=== PATIENT | male | born 1985 | race African-American/Black ===

== ENCOUNTER 2020-03-24 02:22 | Emergency (ER) | payer SELFPAY ==
[2020-03-24 02:30] VITALS: BP 152/94; PULSE 104; RESP 12; TEMP 36.9; O2SAT 95
[2020-03-24 03:02] LABS: Basophils Absolute Auto 0.1 K/mm3 (0.0-0.1); Basophils Percent Auto 0.6 % (0.2-1.2); Eosinophils Absolute Auto 0.2 K/mm3 (0-0.3); Eosinophils Percent Auto 1.6 % (0-4.4); Hematocrit 48.7 % (42.0-52.0); Hemoglobin 17.2 g/dL (14.0-18.0); Immature Granulocyte Absolute 0.03 K/mm3 (0.00-0.031); Immature Granulocyte Percent A 0.3 % (0-0.5); Lymphocytes Percent Auto 20.8 % (18.3-44.2); Mean Corpuscular HGB Conc 35.3 g/dl (32-36); Mean Corpuscular Hemoglobin 28.6 pg (26-34); Mean Corpuscular Volume 80.9 fl (80-100); Mean Platelet Volume 9.1 fl (7.4-10.4); Monocytes Absolute Auto 0.9 K/mm3 (0.1-0.6); Neutrophils Percent Auto 68.7 % (45.5-73.1); Platelet Count Result 253 k/mm3 (150-375); Red Blood Count 6.02 M/mm3 (4.6-6.20); Red Cell Distribution Width 13.4 % (11.5-14.5); White Blood Count 11.6 K/mm3 (4.5-10.0)
[2020-03-24 03:23] LABS: Alanine Aminotransferase 61 U/L (4-50); Albumin Level 4.9 g/dL (3.5-5.1); Alkaline Phosphatase 112 U/L (38-126); Aspartate Amino Transferase 43 U/L (17-59); Bilirubin,Total 0.6 mg/dL (0.2-1.3); Blood Urea Nitrogen 8 mg/dL (9-20); Calcium 9.3 mg/dL (8.4-10.2); Carbon Dioxide 26 mmol/L (22-30); Chloride 90 mmol/L (98-107); Estimated Glomerular Filt Rate > 60; Glucose 97 mg/dL (75-110); Lipase 392 U/L (23-300); Potassium 3.1 mmol/L (3.4-5.0); Sodium 132 mmol/L (137-145)
[2020-03-24 03:24] LABS: Add Urine Microscopic? YES; Appearance Urine Clear (Clear); Bacteria Urine Trace /hpf; Bilirubin Urine Negative (Negative); Blood Urine 1+ (Negative); Color Urine Straw (Yellow); Glucose Urine UA Negative (Negative); Ketones Urine Trace mg/dL (Negative); Leukocyte Esterase Ur Negative LEU/UL (Negative); Mucus Urine Rare /lpf; Nitrate Urine Negative (Negative); Protein Urine Negative (Negative); RBC Urine 0-2 /hpf (0-2); Specific Grav Ur 1.008 (1.001-1.035); Squamous Epithelial Cell Urine Rare /hpf (Few); Urobilinogen Urine Negative mg/dL (<2.0); WBC Urine 0-3 /hpf
[2020-03-24] MEDS: SODIUM CHLORIDE 0.9% IV 1,000 ML 999 ML IV CONT (03:41)
[2020-03-24] MEDS: MORPHINE SULFATE 4 MG/ML INJ IV PUSH (03:41)
[2020-03-24] MEDS: ONDANSETRON INJ 4 MG/2 ML VIAL IV PUSH (03:42)
[2020-03-24] MEDS: BELLADONNA ALK/PHENOB ELIX 10 ML, MAG HYDROX/ALUMINUM HYD/SIMETH 30 ML, LIDOCAINE HCL 2... PO (03:49)
--- NOTE | 2020-03-24 04:01 | ED.GENADULT ---
HPI - General Adult General Chief complaint: Abdominal Pain Stated complaint: multiple complaints Time Seen by Provider: 03/24/20 02:51 History of Present Illness HPI narrative: Patient is a 34-year-old male who presents the ER with abdominal pain. Located in the epigastrium and upper parts of the stomach. Ongoing intermittently over the last week waxes and wanes in intensity. Worse with eating and drinking especially alcohol. If he drinks too much water he will vomit. No fevers or chills or sweats. No burning in the back of the throat or the chest. Has not had similar symptoms before. Related Data Allergies Allergy/AdvReac Type Severity Reaction Status Date / Time No Known Allergies Allergy Verified 03/24/20 02:33 Review of Systems Review of Systems: All systems reviewed & are unremarkable except as noted in HPI and below Constitutional: Constitutional: Denies chills, Denies fever(s) and Reports weakness Cardiovascular: Cardiovascular: Denies chest pain and Denies radiating jaw, neck or arm pain Respiratory: Respiratory: Denies cough, Denies dyspnea and Denies wheezing Gastrointestinal: Gastrointestinal: Reports abdominal pain, Reports nausea and Reports vomiting PMFSH Past Medical History Medical History (Updated 03/24/20 @ 04:23 by Domenico Carrillo MD) Asthma Surgical History Surgical History (Updated 03/24/20 @ 04:18 by Domenico Carrillo MD) No pertinent past surgical history Social History Social History (Updated 03/24/20 @ 04:19 by Domenico Carrillo MD) Smoking status: Current every day smoker Exam Narrative: Exam Narrative: GENERAL: Well-appearing, well-nourished, and in no acute distress. HEAD: Normocephalic, atraumatic. ENT: Mucous membranes moist. CHEST: Clear to auscultation. No respiratory distress. HEART: Regular rate and rhythm. Normal peripheral pulses. ABDOMEN: Soft, nontender, nondistended. EXTREMITIES: Normal range of motion. No edema. SKIN: Warm, dry, no rash. NEURO: Alert and oriented x3. Course Course Emergency Course: Patient feels improved with Zofran/morphine/GI cocktail. Informed of results. Discharge home. Vital Signs Vital signs: Vital Signs Temperature 98.5 F 03/24/20 02:30 Pulse Rate 104 H 03/24/20 02:30 Respiratory Rate 12 03/24/20 02:30 Blood Pressure 152/94 H 03/24/20 02:30 Pulse Oximetry 95 03/24/20 02:30 Temperature 98.5 F 03/24/20 02:30 Pulse Rate 104 H 03/24/20 02:30 Respiratory Rate 12 03/24/20 02:30 Blood Pressure 152/94 H 03/24/20 02:30 Pulse Oximetry 95 03/24/20 02:30 Medical Decision Making Vital Signs Vital Signs: Vital Signs Temperature 98.5 F 03/24/20 02:30 Pulse Rate 104 H 03/24/20 02:30 Respiratory Rate 12 03/24/20 02:30 Blood Pressure 152/94 H 03/24/20 02:30 Pulse Oximetry 95 03/24/20 02:30 Temperature 98.5 F 03/24/20 02:30 Pulse Rate 104 H 03/24/20 02:30 Respiratory Rate 12 03/24/20 02:30 Blood Pressure 152/94 H 03/24/20 02:30 Pulse Oximetry 95 03/24/20 02:30 Lab Data Result diagrams: 03/24/20 02:55 03/24/20 02:55 Labs: Lab Results 03/24/20 03/24/20 03/24/20 Range/Units 02:55 02:55 02:55 WBC 11.6 H (4.5-10.0) K/mm3 RBC 6.02 (4.6-6.20) M/mm3 Hgb 17.2 (14.0-18.0) g/dL Hct 48.7 (42.0-52.0) % MCV 80.9 (80-100) fl MCH 28.6 (26-34) pg MCHC 35.3 (32-36) g/dl RDW 13.4 (11.5-14.5) % Plt Count 253 (150-375) k/mm3 MPV 9.1 (7.4-10.4) fl Immature Gran % (Auto) 0.3 (0-0.5) % Neut % (Auto) 68.7 (45.5-73.1) % Lymph % (Auto) 20.8 (18.3-44.2) % Spink % (Auto) 8.0 (2.6-8.5) % Eos % (Auto) 1.6 (0-4.4) % Baso % (Auto) 0.6 (0.2-1.2) % Lymph # (Auto) 2.40 (0.9-3.2) K/mm3 Spink # (Auto) 0.9 H (0.1-0.6) K/mm3 Eos # (Auto) 0.2 (0-0.3) K/mm3 Baso # (Auto) 0.1 (0.0-0.1) K/mm3 Abs Immat Gran (auto) 0.03 (0.00-0.031) K/mm3 Absolute Neuts (a
[2020-03-24 04:16] VITALS: BP 134/85; PULSE 99; RESP 19; O2SAT 100
[2020-03-24 04:26] VITALS: BP 133/74; PULSE 90; RESP 18; TEMP 37.1; O2SAT 100
== END 2020-03-24 04:31 | disposition home or self-care (01) ==
PROVIDERS: Emergency Provider Emergency Medicine
DX: K29.70 Gastritis, unspecified, without bleeding (principal); J45.909 Unspecified asthma, uncomplicated; F17.200 Nicotine dependence, unspecified, uncomplicated
CPT/HCPCS: 36415; 80053; 81001; 83690; 85025; 96361; 96374; 96375; 99284; A9270; J2270; J2405; J7030

== ENCOUNTER 2024-10-05 14:36 | Emergency (ER) | payer SELFPAY ==
--- NOTE | ~2024-10-05 | XR_ITS ---
XR lumbar spine 2-3V DATE: 10/05/2024 15:02 INDICATION: Radiating right low back pain TECHNIQUE: AP, lateral, coned lateral lumbosacral views COMPARISON: None FINDINGS: Normal alignment of the lumbar vertebrae. No fracture or bone destruction. The lumbar pedic les are intact. Lumbosacral interspaces are well preserved. No spondylolisthesis. The sacroiliac joints are intact. IMPRESSION: No significant abnormality Reviewed, dictated and finalized at location A. [employer] SEC[employer] DIRECT[employer] IMPRESSION: No significant abnormality
[2024-10-05 14:38] VITALS: BP 151/98; PULSE 101; RESP 14; TEMP 36.5; O2SAT 100
--- NOTE | 2024-10-05 14:49 | ED_ITS ---
HPI - Extremity Injury (Lower) General Chief Complaint: Extremity Injury, Lower Stated Complaint: right thigh pain x 1 month Time Seen by Provider: 10/05/24 14:40 Source: patient Mode of arrival: ambulatory Limitations: no limitations History of Present Illness HPI Narrative: This is a 39 year old male that presents to the ER for right sided low back pain. Ongoing over the last month. No known injury or trauma. Reports the pain radiates into the right leg. Denies saddle anesthesia, bowel/bladder incontinence. Related Data Allergies Allergy/AdvReac Type Severity Reaction Status Date / Time No Known Allergies Allergy Verified 03/24/20 02:33 Review of Systems Review of Systems: CONSTITUTIONAL: Denies fever SKIN: Denies rash MUSCULOSKELETAL: Reports back pain, and myalgia. NEUROLOGIC: Denies numbness, or weakness. All systems reviewed & are unremarkable except as noted in HPI and below PMFSH Past Medical History Medical History (Updated 10/05/24 @ 15:28 by Isi Hawk PA-C) Asthma Surgical History Surgical History (Updated 03/24/20 @ 04:18 by Domenico Carrillo MD) No pertinent past surgical history Social History Social History (Updated 03/24/20 @ 04:19 by Domenico Carrillo MD) Smoking status: Current every day smoker Exam Narrative: GENERAL: Well-appearing, well-nourished, and in no acute distress. HEAD: Normocephalic, atraumatic. EYES: EOMI. CHEST: Clear to auscultation. No respiratory distress. No wheezes rales or rhonchi HEART: Regular rate and rhythm. No murmur heard. Normal peripheral pulses. BACK: No midline spinal tenderness EXTREMITIES: Normal range of motion. No edema. Strength equal in bilateral lower extremities (5/5). Normal DP pulses SKIN: Warm, dry, no rash. NEURO: No focal deficits. Alert and oriented x3. Normal gait PSYCH: Normal mood and affect Course Course Emergency Course: patient updated on workup and agrees with plan of care Vital Signs Vital signs: Vital Signs Temperature 97.7 F 10/05/24 14:38 Pulse Rate 101 H 10/05/24 14:38 Respiratory Rate 14 10/05/24 14:38 Blood Pressure 151/98 H 10/05/24 14:38 Pulse Oximetry 100 10/05/24 14:38 Oxygen Delivery Room Air 10/05/24 14:38 Temperature 97.7 F 10/05/24 14:38 Pulse Rate 101 H 10/05/24 14:38 Respiratory Rate 14 10/05/24 14:38 Blood Pressure 151/98 H 10/05/24 14:38 Pulse Oximetry 100 10/05/24 14:38 Oxygen Delivery Room Air 10/05/24 14:38 MDM - Extremity Injury (Lower) MDM Narrative Medical decision making narrative: patient presents to the emergency department for right-sided low back pain radiating into the leg, ongoing over the last month. He is neurologically intact. No recent injuries or trauma. Lumbar spine x-ray without acute findings. Patient updated on his workup and agrees with plan of care. He is to follow up with primary provider. He was given warnings to return to the ER Differential Diagnosis Differential diagnosis: Likely other (Sciatica, lumbar radiculopathy, muscle strain) Imaging Data Radiologist's impression: ITS Impressions Lumbar Spine X-Ray 10/05/24 15:23 IMPRESSION: No significant abnormality Critical Care Time Critical Care Time Critical Care Time: No Discharge Plan Discharge Clinical Impression: Sciatica Qualifiers: Laterality: right Qualified Code(s): M54.31 - Sciatica, right side Patient Disposition: Home, Self-Care Condition: Stable Instructions: Sciatica (ED) Additional Instructions: Return to the ER if you experience weakness, numbness, bowel/bladder incontinence, or any other symptoms that are concerning to you Rest, use ice/heat, take anti-inflammatories (Aleve, Ibuprofen, Naproxen, etc) or Tylenol as needed for pain as well as muscle relaxer (Flexeril) as needed for pain. Muscle relaxers can make you drowsy, do not drive if you take this Follow up with your primary care doctor Patient Language: Upper Sorbian Prescriptions: New cyclobenzaprine 10 mg tablet 10 mg PO TID PRN (Reason: muscle spasm) Qty: 14 0RF No Action famotidine [Pepcid] 20 mg tablet 20 mg PO BID Qty: 20 0RF Follow-up/Referrals: Landon Johnson MD [Physician] - PHYSICIAN,[employer] MANAGEMENT [employer]OCIATE [Primary Care Provider] -
[2024-10-05] MEDS: ACETAMINOPHEN 500 MG TABLET 1000 MG PO (15:07)
[2024-10-05] MEDS: KETOROLAC 30 MG/ML VIAL (*BKC) IM (15:08)
--- OUTSIDE RECORDS SUMMARY | 2024-10-12 22:43 | XMS_ITS | CONTINUITY OF CARE DOCUMENT ---
Author Name layla rich Address Unknown Organization [facility] Address [address] [place] [address] [address] [place] [address] Phone [phone] Care Team Providers Care Manager Technical Support Name Role Phone Dave Thurman MD Unavailable Dave Thurman MD Unavailable [phone] INSURANCE PROVIDERS Payer name Policy type / Coverage type [place] red green party ID [facility] [id number]
== END 2024-10-05 15:40 | disposition home or self-care (01) ==
PROVIDERS: Emergency Provider Physician Assistant
DX: M54.41 Lumbago with sciatica, right side (principal); J45.909 Unspecified asthma, uncomplicated; F17.200 Nicotine dependence, unspecified, uncomplicated
CPT/HCPCS: 72100; 96372; 99283; A9270; J1885